=== PATIENT | male | born 1930 | race Caucasian/White ===

== ENCOUNTER 2018-01-03 09:38 | Inpatient (IN) | payer OTHER ==
--- NOTE | 2018-01-02 17:08 | GHP ---
ADMISSION DIAGNOSES: Hematuria and benign prostatic hyperplasia. 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 He has had previous elevated PSAs and an MRI of the prostate that reveals a PI-RADS 2 as of 05/2017. PAST HISTORY: Positive for BPH and bladder cancer and an elevated PSA, and he has had gross hematuria, and he has had urge incontinence. PAST SURGICAL HISTORY: TURBT, cataract, inguinal hernia, kidney stone, TURP, vasectomy. MEDICATIONS: Amlodipine, aspirin, carbidopa/levodopa, levothyroxine, lisinopril , and trazodone. ALLERGIES: Percocet. FAMILY HISTORY: Positive for heart disease. SOCIAL HISTORY: Moderate alcohol consumption. Previously worked at [employer] as employee in high radiation exposure and he has been a previous smoker. REVIEW OF SYSTEMS: Negative cardiac, respiratory, GI, and endocrine. PHYSICAL EXAMINATION: VITAL SIGNS: Stable. CHEST: Clear. HEART: Regular rate and rhythm. ABDOMEN: Normal. No organomegaly, rebound, or guarding. LOWER EXTREMITIES: Normal at the present time. PLAN: He is admitted for transurethral resection of the prostate and indications, complications, and risks discussed with him. /[id number]/MODL MTDD
--- NOTE | 2018-01-03 09:23 | PDANEPAE ---
ANE History of Present Illness 88 yo with hx of bladder tumors ANE Past Medical History - Cardiovascular History Hx Hypertension: Yes Hx Arrhythmias: No Hx Chest Pain: No Hx Coronary Artery / Peripheral Vascular Disease: No Hx CHF / Valvular Disease: No Hx Palpitations: No - Pulmonary History Hx COPD: No Hx Asthma/Reactive Airway Disease: No Hx Recent Upper Respiratory Infection: No Hx Oxygen in Use at Home: No Hx Sleep Apnea: No Sleep Apnea Screening Result - Last Documented: Positive Pulmonary History Comment: VALERY triggers only - Neurologic History Hx Cerebrovascular Accident: No Hx Seizures: No Hx Dementia: No Neurologic History Comment: Parkinson's Disease. Carpel tunnel syndrome. sciatic pain, right side - Endocrine History Hx Diabetes: No Hypothyroid: No Hyperthyroid: No Obesity: no Endocrine History Comment: hypothyroid - Renal History Hx Renal Disorders: Yes Renal History Comment: hx bladder tumors - Liver History Hx Hepatic Disorders: No - Neurological & Psychiatric Hx Hx Neurological and Psychiatric Disorders: Yes Neurological / Psychiatric History Comment: mild depression - Cancer History Hx Cancer: Yes Cancer History Comment: cancerous bladder tumors - Congenital Disorder History Hx Congenital Disorders: No - GI History GERD: no Hx Gastrointestinal Disorders: Yes Gastrointestinal History Comment: bloating after eating full meals - Other Health History Other Health History: bilateral hearing aids. glasses for reading. sinusitis. lower partial plate. occasional eczema on lower legs and ankles, none currently - Chronic Pain History Chronic Pain: No (sciatic pain) - Surgical History Prior Surgeries: bilateral knee replacements. tumors removed from bladder. cataract removal and lens implants. TURP, 1987. multiple cystoscopies. hernia repair ANE Review of Systems Review of Systems: - Exercise capacity METS (RN): 4 METS ANE Patient History - Allergies Allergies/Adverse Reactions: oxycodone Allergy (Verified 12/27/17 10:26) "Makes me miserable" - Home Medications Home Medications: Herbals/Supplements -Info Only 1 ea PO DAILY 02/06/14 [Last Taken Unknown] Lisinopril [Zestril 20 mg (*)] 20 mg PO BID 02/06/14 [Last Taken Unknown] Carbidopa/Levodopa [Carbidopa-Levodopa 25-100 Tab] 2 each PO TID@,,19 [Last Taken Unknown] Cholecalciferol Vit D3 [Vitamin D3 2000 units tab (OTC)] 2,000 units PO DAILY [Last Taken Unknown] Cyanocobalamin [Vitamin B12 (*)] 1,000 mcg PO DAILY 12/25/17 [Last Taken Unknown ] Donepezil HCl [Aricept] 10 mg PO HS 12/25/17 [Last Taken Unknown] Escitalopram Oxalate [Lexapro] 5 mg PO HS 12/25/17 [Last Taken Unknown] Folic Acid [Folic Acid 1 MG (*)] 1 mg PO DAILY 12/25/17 [Last Taken Unknown] Levothyroxine [Synthroid 75 mcg (*)] 75 mcg PO DAILY06 12/25/17 [Last Taken Unknown] traZODone [traZODONE 50MG (*)] 25 mg PO HS 12/25/17 [Last Taken Unknown] - Anes Hx Anes Hx: no prior problems - Smoking Hx Smoking Status: Former smoker - Family Anes Hx Family Anes Hx: none Family Hx Anesthesia Complications: none ANE Labs/Vital Signs - Vital Signs Height: 168.91 cm Weight: 65.771 kg ANE Physical Exam - Airway Neck exam: FROM Mallampati Score: Class 2 Mouth exam: normal dental/mouth exam - Pulmonary Pulmonary: no respiratory distress, clear to auscultation - Cardiovascular Cardiovascular: regular rate and rhythym, no murmur, rub, or gallop - ASA Status ASA Status: III ANE Anesthesia Plan Anesthesia Plan: general endotracheal anesthesia
[2018-01-03] MEDS ORDERED: ceFAZolin 2 GM/DEXTROSE 100 ML IV ONE (10:11)
[2018-01-03] MEDS ORDERED: LR 1,000 ML IV ONE (10:12)
[2018-01-03] MEDS ORDERED: LIDOCAINE 2% 2 ML INJ ONE (11:08)
[2018-01-03] MEDS ORDERED: fentaNYL 100 MCG/2 ML INJ ONE ×2 (11:08→11:54)
[2018-01-03] MEDS ORDERED: PROPOFOL 200 MG/20 ML VIAL ONE (11:08)
[2018-01-03] MEDS ORDERED: LIDOCAINE 2% JELLY 20 ML (UROJECT) ONE (11:16)
[2018-01-03] MEDS ORDERED: DEXAMETHASONE 4 MG/ML VIAL ONE (11:20)
[2018-01-03] MEDS ORDERED: ONDANSETRON 4 MG/2 ML VIAL ONE (11:20)
[2018-01-03] MEDS ORDERED: NALOXONE HCL 0.4 MG/ML INJ IVP PRN (11:30)
[2018-01-03] MEDS ORDERED: fentaNYL 100 MCG/2 ML INJ IVP PRN (11:30)
[2018-01-03] MEDS ORDERED: PROMETHAZINE HCL 25 MG/ML INJ IVP PRN (11:30)
--- NOTE | 2018-01-03 11:32 | POSTANESTH ---
Post Anesthetic Evaluation Cardiovascular Status: Normal, Stable Respiratory Status: Normal, Stable Level of Consciousness/Mental Status: Can Participate in Eval Pain Control: Adequate, Prn Tx Ordered Nausea/Vomiting Control: Adequate, Prn Tx Ordered Complications Possibly Related to Anesthesia: None Noted
[2018-01-03] MEDS ORDERED: HYDROCODONE/APAP 5/325 TAB PO PRN (12:16)
[2018-01-03] MEDS ORDERED: OPIUM/BELLADONNA ALKALO SUPP PR PRN (12:16)
--- NOTE | 2018-01-03 12:16 | POSTOPPROG ---
Post Op Note Date of Operation: 01/03/18 (dictated) Surgeon: Vladimir Singh Anesthesia: LMA Pre-op Diagnosis: tcc prostate, bph Procedure: turp Inf/Abcess present in the surg proc area at time of surgery?: No EBL: 50-100 Drains: Other (albarado) Specimen(s): sent
--- NOTE | 2018-01-03 12:28 | GOP ---
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 PROCEDURE PERFORMED: Transurethral resection of the prostate and prostatic urethral tumor. FINDINGS: TCC of prostate fossa DESCRIPTION OF PROCEDURE: After undergoing general anesthesia, being prepped and draped in normal sterile fashion and appropriate time-out, the scope was passed in the bladder. He had transitional cell tumor appearing at the anterior part of the prostate going off to the right lateral side. At that point, I resected that lesion and then resected the right lateral lobe, right portion of the posterior lobe, left lateral lobe, and left portion of the posterior lobe. Resected bladder was Ellik'd free of all chips and clots. Visualization revealed no residual chips or clots. Ureteral orifices preserved. External sphincter approximated at the midline symmetrically. Uro- Jet placed in the urethra. A 22 three-way catheter passed in the bladder and 60 cc balloon inflated, irrigated clear. He will be admitted for postoperative care. I will discuss the findings with his daughter and will plan on keeping him overnight and if the urine is clear, will remove the catheter in the morning. If he voids, he will be discharged home. Pathology pending. /[id number]/MODL MTDD
[2018-01-03] MEDS ORDERED: D5W LR 1,000 ML IV SCH (12:30)
--- NOTE | 2018-01-03 13:27 | PDMN ---
Medical Necessity Medical necessity: [facility] [place]: [id number] TURP A-1 day INPT from admit : 88 yr old male, bladder carcinoma, BPH, cystitis, elevated PSA, ED, gross hematuria, OP: TURP and prostatic urethral tumor per surg fax: [facility] FOR CPT [id number]. DONE IN PT
[2018-01-03] MEDS: CARBIDOPA/LEVODOPA 25 MG/100 MG TAB PO SCH ×2 (15:56→20:19)
[2018-01-03] MEDS: LISINOPRIL 20 MG TAB PO SCH (19:51)
[2018-01-03] MEDS ORDERED: traZODone 50 MG TAB PO SCH (21:00)
[2018-01-03] MEDS ORDERED: ESCITALOPRAM OXALATE 10 MG TAB PO SCH (21:00)
[2018-01-03] MEDS ORDERED: DONEPEZIL HCL 5 MG TAB PO SCH (21:00)
[2018-01-04] MEDS: CARBIDOPA/LEVODOPA 25 MG/100 MG TAB PO SCH ×2 (05:40→13:26)
[2018-01-04] MEDS ORDERED: LEVOTHYROXINE 75 MCG TAB PO SCH (06:00)
[2018-01-04] MEDS ORDERED: CYANO/VITAMIN B12 1000 MCG TAB PO SCH (09:00)
[2018-01-04] MEDS ORDERED: FOLIC ACID 1 MG TAB PO SCH (09:00)
[2018-01-04] MEDS ORDERED: CHOLECALCIFEROL VIT D3 2,000 UNITS TAB/CAP PO SCH (09:00)
[2018-01-04] MEDS ORDERED: CALCIUM CARBONATE 500 MG CHEWABLE TAB PO PRN (09:58)
--- NOTE | 2018-01-04 09:58 | SOAPPROG ---
SOAP Progress Note Assessment/Plan: Assessment: BPH (benign prostatic hyperplasia) Acute Transitional cell bladder cancer Acute POD #1 TURP of prostate and TCC of prostate Plan: DC albarado and dc home after pt voids 01/04/18 09:59 Subjective: doing well Objective: Vital Signs Temp Pulse Resp BP Pulse Ox 37.7 C 59 L 16 140/83 H 95 01/04/18 08:00 01/04/18 09:29 01/04/18 09:29 01/04/18 08:00 01/04/18 09:29 01/03/18 01/04/18 01/05/18 05:59 05:59 05:59 Intake Total 1711 Output Total 1700 1400 Balance 11 -1400 Physical Exam - Physical Exam General Appearance: alert Neck: supple Respiratory: No respiratory distress Cardiac/Chest: regular rate, rhythm Abdomen: soft Neuro/Psych: alert, oriented x 3 ICD10 Worksheet Patient Problems: Problems Problem Status Onset BPH (benign prostatic hyperplasia) Acute Transitional cell bladder cancer Acute Transient global amnesia Acute - ICD10 Problem Qualifiers (1) Transitional cell bladder cancer (2) BPH (benign prostatic hyperplasia)
--- NOTE | 2018-01-04 10:20 | ASMTLACE ---
RAYAE Length of stay for Answers: 1 day current admission Acuity / Level of Answers: Yes Care: Did the patient have an inpatient admission? Comorbidities - select Answers: Any tumor (including all that apply lymphoma or leukemia) Other Notes: Parkinson's diseasae; H [place] # of Emergency department Answers: 0 visits in the last 6 months Social determinants Answers: Mental health diagnosis (anxiety, depression, pers onality disorders, etc.) Score: 10 Date Signed: 01/04/2018 10:17 AM Electronically Signed By:Chastity Shields RN
[2018-01-04] MEDS: LISINOPRIL 20 MG TAB PO SCH (10:22)
--- NOTE | 2018-01-04 10:23 | ASMTCMCOM ---
CM Note CM Note Notes: Chart reviewed for discharge needs. 88 year old male s/p TURP with Dr. Singh. Medically cleared for discharge this am with outpatient follow up. No needs identified at this time. CM available should needs arise. plan: Home independently with family. Date Signed: 01/04/2018 10:19 AM Electronically Signed By:Chastity Shields RN
[2018-01-04 13:28] VITALS: BP 168/80
--- NOTE | 2018-01-24 07:34 | GDS ---
ADMISSION DIAGNOSIS: BPH with transitional cell carcinoma of the bladder. PROCEDURE DURING HOSPITALIZATION: Transurethral resection of prostate. HOSPITAL COURSE: This gentleman was an a.m. admission, had the above procedure performed. He is saeed ng discharged home, and have followup with me for pathology report 3 weeks postoperatively. /[id number]/MODL
== END 2018-01-04 14:30 | disposition home or self-care (01) | DRG 667 ==
LOC: F1N 09:38
PROVIDERS: ADMIT Specialist; ATTEND Specialist
PROC: 0VT07ZZ Resection of Prostate, Via Natural or Artificial Opening (ICD-10-PCS; principal; 2018-01-03 11:00)
DX: D09.0 Carcinoma in situ of bladder (principal); N40.1 Benign prostatic hyperplasia with lower urinary tract symptoms; R31.9 Hematuria, unspecified; N39.498 Other specified urinary incontinence; Z87.442 Personal history of urinary calculi
CPT/HCPCS: J0690; J1100; J2405; J2704; J3010